=== PATIENT | female | born 1985 | race Caucasian/White ===

== ENCOUNTER 2018-03-05 07:40 | Emergency (ER) | payer OTHER ==
[~2018-03-05] VITALS: Ht 154.9 cm; Wt 86.2 kg
[2018-03-05] MEDS ORDERED: PRENA1 TRUE CO1 EACH (08:05)
== END 2018-03-05 13:01 | disposition home or self-care (01) ==
LOC: ER 07:40
DX: O20.0 Threatened abortion (principal); Z34.01 Encounter for supervision of normal first pregnancy, first trimester